=== PATIENT | female | born 1990 | race Caucasian/White ===

== ENCOUNTER 2017-08-30 06:55 | Emergency (ER) | payer BC ==
[2017-08-30 07:40] LABS: CHLORIDE,CL 104 mmol/L (98-107); SODIUM,NA 137 mmol/L (136-145)
--- NOTE | 2017-08-30 07:42 | EDM.PDOC ---
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 She had similar symptoms 3 weeks prior that resolved however yesterday she had a slip on the ice" with the pain this morning worsening with movement of her right arm better at rest No fever nausea vomiting chills sweats no actual chest pain shortness breath headache dizziness or palpitation no bowel or urine symptoms ] Review of systems: As per history of present illness and below otherwise all systems reviewed and negative. Past medical history: As per history of present illness and as reviewed below otherwise noncontributory. Surgical history: As per history of present illness and as reviewed below otherwise noncontributory. Social history: No reported history of drug or alcohol abuse. Family history: As per history of present illness and as reviewed below otherwise noncontributory. Physical exam: HEENT: Atraumatic, normocephalic, pupils reactive, negative for conjunctival pallor or scleral icterus, mucous membranes moist, throat clear, neck supple, nontender, trachea midline. Lungs: Clear to auscultation, breath sounds equal bilaterally, chest nontender. Heart: S1S2, regular, negative for clicks, rubs, or JVD. Abdomen: Soft, nondistended, nontender. Negative for masses or hepatosplenomegaly. Negative for costovertebral tenderness. Pelvis: Stable nontender. Genitourinary: Deferred. Rectal: Deferred. Extremities: Atraumatic, negative for cords or calf pain. Neurovascular unremarkable. Neuro: Awake, alert, oriented. Cranial nerves II through XII unremarkable. Cerebellum unremarkable. Motor and sensory unremarkable throughout. Exam nonfocal. Musculoskeletal as per history of present illness otherwise unremarkable Diagnostics: []CBC CMP troponin and d-dimer Chest 1 view EKG Therapeutics: [ rest ice ibuprofen Icy hot patches may benefit ] Impression: [ muscle spasm-right trapezius distribution right pectoralis major] Definitive disposition and diagnosis as appropriate pending reevaluation and review of above. R chest, R shoulder blade, R arm Pain Score (Numeric/FACES): 4 - Related Data Allergies Allergy/AdvReac Type Severity Reaction Status Date / Time No Known Allergies Allergy Verified 08/30/17 07:01 Home Meds: Home Meds . [No Known Home Meds] 08/30/17 [History] Past Medical History - Infectious Disease History Infectious Disease History: Reports: Chicken Pox - Past Surgical History HEENT Surgical History: Reports: Tonsillectomy Social & Family History - Family History Family Medical History: Noncontributory - Tobacco Use Smoking Status *Q: Former Smoker Years of Tobacco use: 3 Packs/Tins Daily: 1 Used Tobacco, but Quit: Yes Month/Year Tobacco Last Used: 6 months ago - Caffeine Use Caffeine Use: Reports: Coffee, Tea - Alcohol Use Days Per Week of Alcohol Use: 2 Number of Drinks Per Day: 5 Total Drinks Per Week: 10 - Recreational Drug Use Recreational Drug Use: No Course - Vital Signs Last Recorded V/S: Last Vital Signs Temp 98.4 F 08/30/17 07:42 Pulse 72 08/30/17 07:42 Resp 18 08/30/17 07:42 BP 117/67 08/30/17 07:42 Pulse Ox 97 08/30/17 07:42 - Orders/Labs/Meds Orders: Active Orders 24 hr Category Date Time Status EKG Documentation Completion [RC] STAT Care 08/30/17 07:04 Active Chest 1V Frontal [CR] Stat Exams 08/30/17 07:03 Taken Labs: Laboratory Tests 08/30/17 08/30/17 08/30/17 Range/Units 07:09 07:09 07:09 WBC 5.27 (4.0-11.0) K/uL RBC 4.91 (4.30-5.90) M/uL Hgb 14.3 (12.0-16.0) g/dL Hct 41.7 (36.0-46.0) % MCV 84.9 (80.0-98.0) fL MCH 29.1 (27.0-32.0) pg MCHC 34.3 (31.0-37.0) g/dL RDW Std Deviation 38.1 (28.0-62.0) fl RDW Coeff of Lorenzo 12 (11.0-15.0) % Plt Count 217 (150-400) K/uL MPV 9.50 (7.40-12.00) fL Neut % (Auto) 42.1 L (48.0-80.0) % Lymph % (Auto) 43.3 H (16.0-40.0) % [place] % (Auto) 12.3 (0.0-15.0) % Eos % (Auto) 1.7 (0.0-7.0) % Baso % (Auto) 0.6 (0.0-1.5) % Neut # (Auto) 2.2 (1.4-5.7) K/uL Lymph # (Auto) 2.3 (0.6-2.4) K/uL [place] # (Auto) 0.7 (0.0-0.8) K/uL Eos # (Auto) 0.1 (0.0-0.7) K/uL Baso # (Auto) 0.0 (0.0-0.1) K/uL Nucleated RBC % 0.0 /100WBC Nucleated RBCs # 0 K/uL D-Dimer, Quantitative < 0.19 (0.0-0.52) mg/LFEU Sodium 137 (136-145) mmol/L Potassium 3.8 (3.5-5.1) mmol/L Chloride 104 (98-107) mmol/L Carbon Dioxide 22.8 (21.0-32.0) mmol/L BUN 14 (7.0-18.0) mg/dL Creatinine 1.0 (0.6-1.0) mg/dL Est Cr Clr Drug Dosing 78.41 mL/min Estimated GFR (MDRD) > 60.0 ml/min Glucose 90 (74-106) mg/dL Calcium 9.0 (8.5-10.1) mg/dL Total Bilirubin 0.6 (0.2-1.0) mg/dL AST 19 (15-37) IU/L ALT 19 (14-63) IU/L Alkaline Phosphatase 45 L (46-116) U/L Troponin I < 0.050 (0.000-0.056) ng/mL Total Protein 6.8 (6.4-8.2) g/dL Albumin 3.8 (3.4-5.0) g/dL Globulin 3.0 (2.0-3.5) g/dL Albumin/Globulin Ratio 1.3 (1.3-2.8) Departure - Departure Time of Disposition: 08:02 Disposition: Home, Self-Care 01 Condition: Good Clinical Impression: Muscle spasm Referrals: PCP,None [Primary Care Provider] - Forms: ED Department Discharge Additional Instructions: Rest Ice 20 minute intervals 3 times daily as needed Icy hot patches may benefit Ibuprofen 400 mg 3 times daily 7-10 days Follow-up with primary care as needed [facility] [address] [place] [id number] The following information is given to patients seen in the emergency department who are being discharged to home. This information is to outline your options for follow-up care. We provide all patients seen in our emergency department with a follow-up referral. The need for follow-up, as well as the timing and circumstances, are variable depending upon the specifics of your emergency department visit. If you don't have a primary care physician on staff, we will provide you with a referral. We always advise you to contact your personal physician following an emergency department visit to inform them of the circumstance of the visit and for follow-up with them and/or the need for any referrals to a consulting specialist. The emergency department will also refer you to a specialist when appropriate. This referral assures that you have the opportunity for follow-up care with a specialist. All of these measure are taken in an effort to provide you with optimal care, which includes your follow-up. Under all circumstances we always encourage you to contact your private physician who remains a resource for coordinating your care. When calling for follow-up care, please make the office aware that this follow-up is from your recent emergency room visit. If for any reason you are refused follow-up, please contact the [facility] emergency department at and asked to speak to the emergency department charge nurse. <Bubba Scott - Last Filed: 08/30/17 08:14> ED ROS GENERAL - Review of Systems Review Of Systems: ROS reveals no pertinent complaints other than HPI. ED EXAM, GENERAL - Physical Exam Exam: See Below Departure - Departure Condition: Good
--- NOTE | 2017-09-01 11:04 | CR ---
EXAM DATE: 08/30/17 PATIENT'S AGE: 27 Patient: HERNANDO MORA Facility: [place], [place] Site . Site : 1990 Study: XRay Chest [id number]/31/2018 7:40:02 AM Ordering Physician: Doctor Fitzgerald Final Report: INDICATION: Right-sided chest pain TECHNIQUE: Single view chest. FINDINGS: The lungs are clear. The heart, mediastinum and pulmonary vessels are of normal size. There is no evidence of pleural disease. IMPRESSION: Negative chest. Dictated by Amrita Menchaca MD @ Aug 30 2017 7:55AM (Electronic Signature) Report Signed by Proxy. CORDELL
== END 2017-08-30 08:25 | disposition home or self-care (01) ==
LOC: MW.ED 06:55
DX: M62.838 Other muscle spasm (principal); Z87.891 Personal history of nicotine dependence
CPT/HCPCS: 36415; 71045; 71045-26; 80053; 84484; 85025; 85379; 93005; 99283; 99285-25

== ENCOUNTER 2018-09-07 13:15 | Emergency (ER) | payer BC ==
[2018-09-07] MEDS ORDERED: Sodium Chloride 0.9% 2.5 ML Syringe FLUSH PRN (13:25)
[2018-09-07] MEDS ORDERED: Sodium Chloride 0.9% 10 ML Syringe FLUSH PRN (13:25)
[2018-09-07] MEDS ORDERED: Sodium Chloride 0.9% 1,000 ML IV ONE ×3 (13:25→14:27)
[2018-09-07] MEDS ORDERED: Metoprolol Tartrate 25 MG Tab PO ONE (13:51)
[2018-09-07 14:04] LABS: CHLORIDE,CL 105 mmol/L (98-107); SODIUM,NA 141 mmol/L (136-145)
[2018-09-07] MEDS ORDERED: Metoprolol Tartrate 5 MG/5 ML SDV IVPUSH ONE (14:10)
--- NOTE | 2018-09-07 14:28 | EDM.PDOC ---
ED HPI GENERAL MEDICAL PROBLEM - General Chief Complaint: Cardiovascular Problem Stated Complaint: HIGH PULSE Time Seen by Provider: 09/07/18 13:18 Source of Information: Reports: Patient History Limitations: Reports: No Limitations - History of Present Illness INITIAL COMMENTS - FREE TEXT/NARRATIVE: History of present illness: []Patient has had a history of intermittent tachycardia and was worked up with a Holter monitor however it did not show any rhythm changes but she was also symptomatic while wearing it. Today she noticed her walk showing her heart rate was 206 while she was starting to feel sweaty, dizzy and lightheaded . Review of systems: As per history of present illness and below otherwise all systems reviewed and negative. Past medical history: As per history of present illness and as reviewed below otherwise noncontributory. Surgical history: As per history of present illness and as reviewed below otherwise noncontributory. Social history: No reported history of drug or alcohol abuse. Family history: As per history of present illness and as reviewed below otherwise noncontributory. Physical exam: General: Well developed, well nourished in NAD HEENT: Atraumatic, normocephalic, pupils reactive, negative for conjunctival pallor or scleral icterus, mucous membranes moist, throat clear, neck supple, nontender, trachea midline. Lungs: Clear to auscultation, breath sounds equal bilaterally, chest nontender. Heart: S1S2, regular, negative for clicks, rubs, or JVD. Abdomen: NABS, Soft, nondistended, nontender. Negative for masses or hepatosplenomegaly. Negative for costovertebral tenderness. Pelvis: Stable nontender. Genitourinary: Deferred. Rectal: Deferred. Extremities: Atraumatic, negative for cords or calf pain. Neurovascular unremarkable. Neuro: Awake, alert, oriented. Cranial nerves II through XII unremarkable. Cerebellum unremarkable. Motor and sensory unremarkable throughout. Exam nonfocal. Skin:warm and dry Diagnostics: EKG, pollen, CBC, Chemistry, UA, drug screen, TSH, CT chest for PE or masses Therapeutics: IV hydration with normal saline, potassium supplement, Lopressor IV 5 mg ED Course: patient had several episodes where her rate would normalize in the 70's and then shoot up to the 120's showing sinus tachycardia on the monitor. Consulted Dr. Benavidez recommended ruling her out for PE checking TSH She improved with Lopressor Impression: Intermittent sinus tachycardia Prescriptions: Metoprolol Plan: Follow-up with Dr. Benavidez and/or primary care Definitive disposition and diagnosis as appropriate pending reevaluation and review of above. - Related Data Allergies Allergy/AdvReac Type Severity Reaction Status Date / Time No Known Allergies Allergy Verified 09/07/18 13:23 Home Meds: Home Meds ClonazePAM [KlonoPIN] 0.5 mg PO DAILY PRN 09/07/18 [History] Metoprolol Succinate 25 mg PO DAILY #15 tab.er.24h 09/07/18 [Rx] Sertraline [Zoloft] 25 mg PO DAILY 09/07/18 [History] Past Medical History Psychiatric History: Reports: Anxiety, Depression - Infectious Disease History Infectious Disease History: Reports: Chicken Pox - Past Surgical History HEENT Surgical History: Reports: Myringotomy w Tube(s), Oral Surgery, Tonsillectomy Social & Family History - Family History Family Medical History: Noncontributory Cardiac: Reports: CAD, SD - Tobacco Use Smoking Status *Q: Current Every Day Smoker Years of Tobacco use: 4 Packs/Tins Daily: 0.2 - Caffeine Use Caffeine Use: Reports: Coffee - Recreational Drug Use Recreational Drug Use: No ED ROS GENERAL - Review of Systems Review Of Systems: ROS reveals no pertinent complaints other than HPI. ED EXAM, GENERAL - Physical Exam Exam: See Below (See history of present illness) Course - Vital Signs Last Recorded V/S: Last Vital Signs Temp 97.6 F 09/07/18 13:20 Pulse 68 09/07/18 15:48 Resp 20 09/07/18 15:48 BP 107/65 09/07/18 15:48 Pulse Ox 96 09/07/18 15:48 - Orders/Labs/Meds Orders: Active Orders 24 hr Category Date Time Status EKG 12 Lead [EKG Documentation Completion] [RC] STAT Care 09/07/18 13:20 Active EKG 12 Lead [EKG Documentation Completion] [RC] STAT Care 09/07/18 13:46 Active Sodium Chloride 0.9% [Saline Flush] Med 09/07/18 13:25 Active 10 ml FLUSH ASDIRECTED PRN Sodium Chloride 0.9% [Saline Flush] Med 09/07/18 13:25 Active 2.5 ml FLUSH ASDIRECTED PRN Saline Lock Insert [OM.PC] Stat Oth 09/07/18 13:24 Ordered Medication Orders Sodium Chloride (Saline Flush) 10 ml FLUSH ASDIRECTED PRN PRN Reason: Keep Vein Open Sodium Chloride (Saline Flush) 2.5 ml FLUSH ASDIRECTED PRN PRN Reason: Keep Vein Open Labs: Laboratory Tests 09/07/18 09/07/18 09/07/18 Range/Units 13:30 13:30 13:44 WBC 7.01 (4.0-11.0) K/uL RBC 5.09 (4.30-5.90) M/uL Hgb 15.1 (12.0-16.0) g/dL Hct 44.2 (36.0-46.0) % MCV 86.8 (80.0-98.0) fL MCH 29.7 (27.0-32.0) pg MCHC 34.2 (31.0-37.0) g/dL RDW Std Deviation 37.9 (28.0-62.0) fl RDW Coeff of Lorenzo 12 (11.0-15.0) % Plt Count 228 (150-400) K/uL MPV 9.80 (7.40-12.00) fL Neut % (Auto) 69.1 (48.0-80.0) % Lymph % (Auto) 25.1 (16.0-40.0) % [place] % (Auto) 5.1 (0.0-15.0) % Eos % (Auto) 0.6 (0.0-7.0) % Baso % (Auto) 0.1 (0.0-1.5) % Neut # (Auto) 4.8 (1.4-5.7) K/uL Lymph # (Auto) 1.8 (0.6-2.4) K/uL [place] # (Auto) 0.4 (0.0-0.8) K/uL Eos # (Auto) 0.0 (0.0-0.7) K/uL Baso # (Auto) 0.0 (0.0-0.1) K/uL Nucleated RBC % 0.0 /100WBC Nucleated RBCs # 0 K/uL Sodium 141 (136-145) mmol/L Potassium 3.2 L (3.5-5.1) mmol/L Chloride 105 (98-107) mmol/L Carbon Dioxide 25.0 (21.0-32.0) mmol/L BUN 16 (7.0-18.0) mg/dL Creatinine 0.8 (0.6-1.0) mg/dL Est Cr Clr Drug Dosing 97.13 mL/min Estimated GFR (MDRD) > 60.0 ml/min Glucose 118 H (74-106) mg/dL Calcium 9.2 (8.5-10.1) mg/dL Total Bilirubin 0.7 (0.2-1.0) mg/dL AST 13 L (15-37) IU/L ALT 20 (14-63) IU/L Alkaline Phosphatase 50 (46-116) U/L Troponin I < 0.050 (0.000-0.056) ng/mL Total Protein 7.8 (6.4-8.2) g/dL Albumin 4.3 (3.4-5.0) g/dL Globulin 3.5 (2.6-4.0) g/dL Albumin/Globulin Ratio 1.2 (0.9-1.6) TSH 3rd Generation (0.36-3.74) uIU/mL Urine HCG, Qual NEGATIVE (NEGATIVE) Urine Opiates Screen (NEGATIVE) Ur Oxycodone Screen (NEGATIVE) Urine Methadone Screen (NEGATIVE) Ur Barbiturates Screen (NEGATIVE) Ur Phencyclidine Scrn (NEGATIVE) Ur Amphetamine Screen (NEGATIVE) U Methamphetamines Scrn (NEGATIVE) U Benzodiazepines Scrn (NEGATIVE) U Cocaine Metab Screen (NEGATIVE) U Marijuana (THC) Screen (NEGATIVE) 09/07/18 09/07/18 Range/Units 13:44 14:41 WBC (4.0-11.0) K/uL RBC (4.30-5.90) M/uL Hgb (12.0-16.0) g/dL Hct (36.0-46.0) % MCV (80.0-98.0) fL MCH (27.0-32.0) pg MCHC (31.0-37.0) g/dL RDW Std Deviation (28.0-62.0) fl RDW Coeff of Lorenzo (11.0-15.0) % Plt Count (150-400) K/uL MPV (7.40-12.00) fL Neut % (Auto) (48.0-80.0) % Lymph % (Auto) (16.0-40.0) % [place] % (Auto) (0.0-15.0) % Eos % (Auto) (0.0-7.0) % Baso % (Auto) (0.0-1.5) % Neut # (Auto) (1.4-5.7) K/uL Lymph # (Auto) (0.6-2.4) K/uL [place] # (Auto) (0.0-0.8) K/uL Eos # (Auto) (0.0-0.7) K/uL Baso # (Auto) (0.0-0.1) K/uL Nucleated RBC % /100WBC Nucleated RBCs # K/uL Sodium (136-145) mmol/L Potassium (3.5-5.1) mmol/L Chloride (98-107) mmol/L Carbon Dioxide (21.0-32.0) mmol/L BUN (7.0-18.0) mg/dL Creatinine (0.6-1.0) mg/dL Est Cr Clr Drug Dosing mL/min Estimated GFR (MDRD) ml/min Glucose (74-106) mg/dL Calcium (8.5-10.1) mg/dL Total Bilirubin (0.2-1.0) mg/dL AST (15-37) IU/L ALT (14-63) IU/L Alkaline Phosphatase (46-116) U/L Troponin I (0.000-0.056) ng/mL Total Protein (6.4-8.2) g/dL Albumin (3.4-5.0) g/dL Globulin (2.6-4.0) g/dL Albumin/Globulin Ratio (0.9-1.6) TSH 3rd Generation 1.93 (0.36-3.74) uIU/mL Urine HCG, Qual (NEGATIVE) Urine Opiates Screen NEGATIVE (NEGATIVE) Ur Oxycodone Screen NEGATIVE (NEGATIVE) Urine Methadone Screen NEGATIVE (NEGATIVE) Ur Barbiturates Screen NEGATIVE (NEGATIVE) Ur Phencyclidine Scrn NEGATIVE (NEGATIVE) Ur Amphetamine Screen NEGATIVE (NEGATIVE) U Methamphetamines Scrn NEGATIVE (NEGATIVE) U Benzodiazepines Scrn NEGATIVE (NEGATIVE) U Cocaine Metab Screen NEGATIVE (NEGATIVE) U Marijuana (THC) Screen NEGATIVE (NEGATIVE) Meds: Medications Generic Name Dose Route Start Last Admin Trade Name Freq PRN Reason Stop Dose Admin Sodium Chloride 10 ml 09/07/18 13:25 Saline Flush FLUSH ASDIRECTED PRN Keep Vein Open Sodium Chloride 2.5 ml 09/07/18 13:25 Saline Flush FLUSH ASDIRECTED PRN Keep Vein Open Discontinued Medications Generic Name Dose Route Start Last Admin Trade Name Freq PRN Reason Stop Dose Admin Sodium Chloride 1,000 mls @ 999 mls/hr 09/07/18 13:25 09/07/18 13:38 Normal Saline IV 09/07/18 14:25 999 mls/hr .Bolus ONE Administration Sodium Chloride 1,000 mls @ 999 mls/hr 09/07/18 14:27 09/07/18 14:31 Normal Saline IV 09/07/18 15:27 999 mls/hr .Bolus ONE Administration Sodium Chloride 1,000 mls @ 999 mls/hr 09/07/18 14:27 09/07/18 14:28 Normal Saline IV 09/07/18 15:27 Not Given .Bolus ONE Iopamidol 50 ml 09/07/18 15:05 09/07/18 15:06 Isovue Multipack-370 (76%) IVPUSH 09/07/18 15:06 50 ml ONETIME ONE Administration Metoprolol Tartrate 25 mg 09/07/18 13:51 09/07/18 14:29 Lopressor PO 09/07/18 13:52 25 mg ONETIME ONE Administration Metoprolol Tartrate 5 mg 09/07/18 14:10 09/07/18 14:24 Lopressor IVPUSH 09/07/18 14:11 Not Given Q5M ONE Ondansetron HCl 4 mg 09/07/18 14:42 09/07/18 14:48 Zofran IVPUSH 09/07/18 14:43 4 mg ONETIME ONE Administration Potassium Chloride 40 meq 09/07/18 14:42 09/07/18 15:13 Klor-Con M20 PO 09/07/18 14:43 40 meq ONETIME ONE Administration Departure - Departure Time of Disposition: 16:00 Disposition: Home, Self-Care 01 Condition: Good Clinical Impression: Paroxysmal sinus tachycardia Prescriptions: Metoprolol Succinate 25 mg PO DAILY #15 tab.er.24h Referrals: PCP,None [Primary Care Provider] - Jessie Cevallos MD [Physician] - (Call for next available appointment) Forms: ED Department Discharge Additional Instructions: The following information is given to patients seen in the emergency department who are being discharged to home. This information is to outline your options for follow-up care. We provide all patients seen in our emergency department with a follow-up referral. The need for follow-up, as well as the timing and circumstances, are variable depending upon the specifics of your emergency department visit. If you don't have a primary care physician on staff, we will provide you with a referral. We always advise you to contact your personal physician following an emergency department visit to inform them of the circumstance of the visit and for follow-up with them and/or the need for any referrals to a consulting specialist. The emergency department will also refer you to a specialist when appropriate. This referral assures that you have the opportunity for follow-up care with a specialist. All of these measure are taken in an effort to provide you with optimal care, which includes your follow-up. Under all circumstances we always encourage you to contact your private physician who remains a resource for coordinating your care. When calling for follow-up care, please make the office aware that this follow-up is from your recent emergency room visit. If for any reason you are refused follow-up, please contact the [facility] Emergency Department at and asked to speak to the emergency department charge nurse. Take meds as directed, follow up with your primary care physician, return to ER if symptoms worsen or change. [facility] [address] [place] [id number] - My Orders Last 24 Hours: My Active Orders 09/07/18 13:20 EKG 12 Lead [EKG Documentation Completion] [RC] STAT 09/07/18 13:24 Saline Lock Insert [OM.PC] Stat 09/07/18 13:25 Sodium Chloride 0.9% [Saline Flush] 10 ml FLUSH ASDIRECTED PRN Sodium Chloride 0.9% [Saline Flush] 2.5 ml FLUSH ASDIRECTED PRN 09/07/18 13:46 EKG 12 Lead [EKG Documentation Completion] [RC] STAT - Assessment/Plan Last 24 Hours: My Active Orders 09/07/18 13:20 EKG 12 Lead [EKG Documentation Completion] [RC] STAT 09/07/18 13:24 Saline Lock Insert [OM.PC] Stat 09/07/18 13:25 Sodium Chloride 0.9% [Saline Flush] 10 ml FLUSH ASDIRECTED PRN Sodium Chloride 0.9% [Saline Flush] 2.5 ml FLUSH ASDIRECTED PRN 09/07/18 13:46 EKG 12 Lead [EKG Documentation Completion] [RC] STAT
[2018-09-07] MEDS ORDERED: Ondansetron 4 MG/2 ML SDV IVPUSH ONE (14:42)
[2018-09-07] MEDS ORDERED: Potassium Chloride 20 MEQ Tab.ER PO ONE (14:42)
--- NOTE | 2018-09-07 14:52 | CR ---
EXAMINATION: Portable chest radiograph. HISTORY: Shortness of breath. FINDINGS: The trachea is midline. The cardiomediastinal silhouette is within normal limits. No pulmonary infiltrates, effusions or pneumothorax. Osseous structures appear unremarkable. IMPRESSION: No acute cardiopulmonary process.
[2018-09-07] MEDS ORDERED: Iopamidol 755 MG/ML 200 ML Multipack Bottle IVPUSH ONE (15:05)
--- NOTE | 2018-09-07 15:48 | CT ---
EXAMINATION: CTA chest HISTORY: Pain COMPARISON: Radiograph from the same day TECHNIQUE: Axial CT imaging obtained through the chest following the administration of 50 mL of Isovue-370 in the right antecubital fossa. Coronal and sagittal reconstructions obtained. FINDINGS: The lungs are clear without focal consolidation. No pleural effusion or pneumothorax. The heart is normal in size without a pericardial effusion. The thoracic aorta is normal in caliber without evidence of obstruction. No focal pericolonic inflammation or stranding. The main and central pulmonary arteries are patent without evidence of a pulmonary embolism. Central airways are clear. No axillary, mediastinal, or hilar lymphadenopathy. No suspicious osseous abnormalities identified. IMPRESSION: No acute cardiopulmonary findings or pulmonary embolism noted.
== END 2018-09-07 16:30 | disposition home or self-care (01) ==
LOC: MW.ED 13:15
DX: I47.1 Supraventricular tachycardia (principal); F17.210 Nicotine dependence, cigarettes, uncomplicated; F41.9 Anxiety disorder, unspecified; F32.9 Major depressive disorder, single episode, unspecified; Z79.899 Other long term (current) drug therapy
CPT/HCPCS: 36415; 71045; 71275; 80053; 80305; 81025; 84443; 84484; 85025; 93005; 96361; 96374; 99285; A9270; J2405; J7040; Q9967

== ENCOUNTER 2018-10-01 14:31 | Emergency (ER) | payer BC ==
[2018-10-01] MEDS ORDERED: Sodium Chloride 0.9% 2.5 ML Syringe FLUSH PRN (14:50)
[2018-10-01] MEDS ORDERED: LORazepam 2 MG/ML SDV IVPUSH ONE (14:50)
[2018-10-01] MEDS ORDERED: Aspirin 81 MG Tab.Chew PO ONE (14:50)
[2018-10-01] MEDS ORDERED: Sodium Chloride 0.9% 10 ML Syringe FLUSH PRN (14:50)
--- NOTE | 2018-10-01 14:55 | EDM.PDOC ---
ED HPI GENERAL MEDICAL PROBLEM - General Chief Complaint: Chest Pain Stated Complaint: CHEST PAIN Time Seen by Provider: 10/01/18 14:35 - History of Present Illness INITIAL COMMENTS - FREE TEXT/NARRATIVE: HISTORY AND PHYSICAL: History of present illness: The patient is a 28-year-old female was been working with our environmental monitoring specialist for tachycardia, which she was seen in our emergency department on September 07 and has since followed up and presents with complaints of squeezing like pain near her Zio patch monitor that she had placed a week ago. The patient underwent a stress test here on September 24 which I have reviewed and was within normal limits for ischemia but she did exceed the goal range for high heart rate and a heart monitor was ordered which she is currently participating in. The patient has followed up with her environmental monitoring specialist as an outpatient and has reduced her caffeine intake and is currently on propranolol area the patient says she has had no systemic complaints such as respiratory infection cough chest pain shortness of breath abdominal pain nausea or vomiting and has been eating and drinking normally. Today while she was at work she started feeling this squeezing-like discomfort which was near the heart monitor and did not radiate and then she started feeling anxious like her heart was racing. On arrival here, partly 2 hours from the onset of symptoms, she is saying that she feels like her heart is racing inside of her even though her heart rate is in the 60s and she's feeling tingling to her face and neck. She says she feels like this is anxiety driven but she is not sure and she is worried. She says that the chest pain has significantly improved and is almost gone at this point and she is more concerned about the tingling and is becoming very tearful on my evaluation. She says she feels very confused and is not sure what is going on with her and wants answers. She currently is not nauseated and has no abdominal pain. She has no leg pain or swelling. The patient does smoke some cigarettes but does not use drugs and says she has reduced her caffeine intake by about half. She does have a significant family history of a father who had a heart attack in his 40s. Review of systems: As per history of present illness and below otherwise all systems reviewed and negative. Past medical history: As per history of present illness and as reviewed below otherwise noncontributory. Surgical history: As per history of present illness and as reviewed below otherwise noncontributory. Social history: No reported history of drug or alcohol abuse. Family history: As per history of present illness and as reviewed below otherwise noncontributory. Physical exam: General: Well-developed well-nourished thin female who is nontoxic and tearful on my evaluation but is speaking clearly and easily. Vital signs are noted by me HEENT: Atraumatic, normocephalic, pupils reactive, negative for conjunctival pallor or scleral icterus, mucous membranes moist, throat clear, neck supple, nontender, trachea midline. Lungs: Clear to auscultation, breath sounds equal bilaterally, chest nontender. ZIO monitor is seen at the left upper chest wall and there is no surrounding erythema soft tissue swelling or tenderness on palpation Heart: S1S2, regular, negative for clicks, rubs, or JVD. Abdomen: Soft, nondistended, nontender. Negative for masses or hepatosplenomegaly. NABS Pelvis: Stable nontender. Genitourinary: Deferred. Rectal: Deferred. Extremities: Atraumatic, negative for cords or calf pain. Neurovascular unremarkable. No pedal edema Neuro: Awake, alert, oriented. Cranial nerves II through XII unremarkable. Cerebellum unremarkable. Motor and sensory unremarkable throughout. Exam nonfocal. Diagnostics: CBC CMP troponin chest x-ray Therapeutics: IV O2 monitor aspirin Ativan The patient says that she feels completely improved after the Ativan and I will discuss with her all testing results. I will also discuss this case with the environmental monitoring specialist Dr. Pramod banerjee from him of today's events. Impression: Atypical chest pain with history of heart monitor and sinus tachycardia stable, anxiety reaction Definitive disposition and diagnosis as appropriate pending reevaluation and review of above. - Related Data Allergies Allergy/AdvReac Type Severity Reaction Status Date / Time No Known Allergies Allergy Verified 10/01/18 14:35 Home Meds: Home Meds ClonazePAM [KlonoPIN] 0.5 mg PO DAILY PRN 09/07/18 [History] Sertraline [Zoloft] 25 mg PO DAILY 09/07/18 [History] Propranolol [Inderal] 25 mg PO DAILY 10/01/18 [History] Past Medical History HEENT History: Reports: None Cardiovascular History: Reports: Other (See Below) Other Cardiovascular History: Zio Patch minotr for Sinus Tachycardia Psychiatric History: Reports: Anxiety, Depression - Infectious Disease History Infectious Disease History: Reports: Chicken Pox - Past Surgical History HEENT Surgical History: Reports: Myringotomy w Tube(s), Oral Surgery, Tonsillectomy Cardiovascular Surgical History: Reports: None Social & Family History - Family History Family Medical History: Noncontributory Cardiac: Reports: CAD, [place] - Tobacco Use Smoking Status *Q: Current Every Day Smoker Years of Tobacco use: 4 Packs/Tins Daily: 1 - Caffeine Use Caffeine Use: Reports: Coffee - Recreational Drug Use Recreational Drug Use: No ED ROS GENERAL - Review of Systems Review Of Systems: ROS reveals no pertinent complaints other than HPI. ED EXAM, GENERAL - Physical Exam Exam: See Below (see Dictation) Course - Vital Signs Last Recorded V/S: Last Vital Signs Temp 35.7 C 10/01/18 14:37 Pulse 66 10/01/18 14:37 Resp 22 H 10/01/18 14:37 BP 143/97 H 10/01/18 14:37 Pulse Ox 98 10/01/18 14:37 - Orders/Labs/Meds Orders: Active Orders 24 hr Category Date Time Status Cardiac Monitoring [RC] . DIRECTED Care 10/01/18 14:49 Active EKG Documentation Completion [RC] STAT Care 10/01/18 14:49 Active Oxygen Therapy, ED [RC] ASDIRECTED Care 10/01/18 14:49 Active Pulse Oximetry [RC] ASDIRECTED Care 10/01/18 14:49 Active Sodium Chloride 0.9% [Saline Flush] Med 10/01/18 14:50 Active 10 ml FLUSH ASDIRECTED PRN Sodium Chloride 0.9% [Saline Flush] Med 10/01/18 14:50 Active 2.5 ml FLUSH ASDIRECTED PRN Saline Lock Insert [OM.PC] Stat Oth 10/01/18 14:49 Ordered Medication Orders Sodium Chloride (Saline Flush) 10 ml FLUSH ASDIRECTED PRN PRN Reason: Keep Vein Open Last Admin: 10/01/18 14:58 Dose: 10 ml Sodium Chloride (Saline Flush) 2.5 ml FLUSH ASDIRECTED PRN PRN Reason: Keep Vein Open Last Admin: 10/01/18 14:58 Dose: 2.5 ml Labs: Laboratory Tests 10/01/18 10/01/18 Range/Units 14:43 14:43 WBC 9.02 (4.0-11.0) K/uL RBC 5.21 (4.30-5.90) M/uL Hgb 15.3 (12.0-16.0) g/dL Hct 45.6 (36.0-46.0) % MCV 87.5 (80.0-98.0) fL MCH 29.4 (27.0-32.0) pg MCHC 33.6 (31.0-37.0) g/dL RDW Std Deviation 39.2 (28.0-62.0) fl RDW Coeff of Lorenzo 12 (11.0-15.0) % Plt Count 349 (150-400) K/uL MPV 10.00 (7.40-12.00) fL Neut % (Auto) 57.4 (48.0-80.0) % Lymph % (Auto) 33.8 (16.0-40.0) % Bell % (Auto) 7.5 (0.0-15.0) % Eos % (Auto) 1.1 (0.0-7.0) % Baso % (Auto) 0.2 (0.0-1.5) % Neut # (Auto) 5.2 (1.4-5.7) K/uL Lymph # (Auto) 3.1 H (0.6-2.4) K/uL Bell # (Auto) 0.7 (0.0-0.8) K/uL Eos # (Auto) 0.1 (0.0-0.7) K/uL Baso # (Auto) 0.0 (0.0-0.1) K/uL Nucleated RBC % 0.0 /100WBC Nucleated RBCs # 0 K/uL Sodium 139 (136-145) mmol/L Potassium 4.2 (3.5-5.1) mmol/L Chloride 102 (98-107) mmol/L Carbon Dioxide 25.5 (21.0-32.0) mmol/L BUN 15 (7.0-18.0) mg/dL Creatinine 0.9 (0.6-1.0) mg/dL Est Cr Clr Drug Dosing 86.34 mL/min Estimated GFR (MDRD) > 60.0 ml/min Glucose 98 (74-106) mg/dL Calcium 9.6 (8.5-10.1) mg/dL Total Bilirubin 0.5 (0.2-1.0) mg/dL AST 16 (15-37) IU/L ALT 17 (14-63) IU/L Alkaline Phosphatase 63 (46-116) U/L Troponin I < 0.050 (0.000-0.056) ng/mL Total Protein 8.2 (6.4-8.2) g/dL Albumin 4.5 (3.4-5.0) g/dL Globulin 3.7 (2.6-4.0) g/dL Albumin/Globulin Ratio 1.2 (0.9-1.6) Meds: Medications Generic Name Dose Route Start Last Admin Trade Name Freq PRN Reason Stop Dose Admin Sodium Chloride 10 ml 10/01/18 14:50 10/01/18 14:58 Saline Flush FLUSH 10 ml ASDIRECTED PRN Administration Keep Vein Open Sodium Chloride 2.5 ml 10/01/18 14:50 10/01/18 14:58 Saline Flush FLUSH 2.5 ml ASDIRECTED PRN Administration Keep Vein Open Discontinued Medications Generic Name Dose Route Start Last Admin Trade Name Freq PRN Reason Stop Dose Admin Aspirin 324 mg 10/01/18 14:50 10/01/18 14:57 Aspirin PO 10/01/18 14:51 324 mg ONETIME ONE Administration Lorazepam 0.5 mg 10/01/18 14:50 10/01/18 14:57 Ativan IVPUSH 10/01/18 14:51 0.5 mg ONETIME ONE Administration Departure - Departure Time of Disposition: 15:45 Disposition: Home, Self-Care 01 Condition: Good Clinical Impression: Anxiety reaction, Atypical chest pain - Discharge Information Referrals: PCP,None [Primary Care Provider] - Forms: ED Department Discharge Additional Instructions: The following information is given to patients seen in the emergency department who are being discharged to home. This information is to outline your options for follow-up care. We provide all patients seen in our emergency department with a follow-up referral. The need for follow-up, as well as the timing and circumstances, are variable depending upon the specifics of your emergency department visit. If you don't have a primary care physician on staff, we will provide you with a referral. We always advise you to contact your personal physician following an emergency department visit to inform them of the circumstance of the visit and for follow-up with them and/or the need for any referrals to a consulting specialist. The emergency department will also refer you to a specialist when appropriate. This referral assures that you have the opportunity for followup care with a specialist. All of these measure are taken in an effort to provide you with optimal care, which includes your followup. Under all circumstances we always encourage you to contact your private physician who remains a resource for coordinating your care. When calling for followup care, please make the office aware that this follow-up is from your recent emergency room visit. If for any reason you are refused follow-up, please contact the [facility] emergency department at and ask to speak to the emergency department charge nurse. [facility] Primary care- Internal Medicine and Family [address] [address] Please continue with your outpatient care plan with her environmental monitoring specialist Dr. Benavidez. Please continue to reduce smoking and caffeine use, push hydration and try to reduce stressors. Return to ER as needed and as discussed - My Orders Last 24 Hours: My Active Orders 10/01/18 14:49 Cardiac Monitoring [RC] . DIRECTED EKG Documentation Completion [RC] STAT Oxygen Therapy, ED [RC] ASDIRECTED Pulse Oximetry [RC] ASDIRECTED Saline Lock Insert [OM.PC] Stat 10/01/18 14:50 Sodium Chloride 0.9% [Saline Flush] 10 ml FLUSH ASDIRECTED PRN Sodium Chloride 0.9% [Saline Flush] 2.5 ml FLUSH ASDIRECTED PRN - Assessment/Plan Last 24 Hours: My Active Orders 10/01/18 14:49 Cardiac Monitoring [RC] . DIRECTED EKG Documentation Completion [RC] STAT Oxygen Therapy, ED [RC] ASDIRECTED Pulse Oximetry [RC] ASDIRECTED Saline Lock Insert [OM.PC] Stat 10/01/18 14:50 Sodium Chloride 0.9% [Saline Flush] 10 ml FLUSH ASDIRECTED PRN Sodium Chloride 0.9% [Saline Flush] 2.5 ml FLUSH ASDIRECTED PRN
--- NOTE | 2018-10-01 15:28 | CR ---
EXAMINATION: AP chest radiograph. HISTORY: Shortness of breath. FINDINGS: The trachea is midline. The cardiomediastinal silhouette is within normal limits. No pulmonary infiltrates, effusions or pneumothorax. Left sided gambling monitor noted. Osseous structures appear unremarkable. IMPRESSION: No acute cardiopulmonary process.
[2018-10-01 15:33] LABS: CHLORIDE,CL 102 mmol/L (98-107); SODIUM,NA 139 mmol/L (136-145)
== END 2018-10-01 16:02 | disposition home or self-care (01) ==
LOC: MW.ED 14:31
DX: F41.1 Generalized anxiety disorder (principal); F17.210 Nicotine dependence, cigarettes, uncomplicated; Z79.899 Other long term (current) drug therapy
CPT/HCPCS: 36415; 71045; 80053; 84484; 85025; 93005; 96374; 99285; A9270; J2060; 99283

== ENCOUNTER 2021-10-14 06:36 | Emergency (ER) | payer BC ==
[2021-10-14] MEDS ORDERED: Ondansetron 4 MG/2 ML SDV IVPUSH ONE (07:54)
[2021-10-14] MEDS ORDERED: Sodium Chloride 0.9% 1,000 ML IV ONE (07:54)
[2021-10-14] MEDS ORDERED: Sodium Chloride 0.9% 2.5 ML Syringe FLUSH PRN (07:54)
[2021-10-14] MEDS ORDERED: Sodium Chloride 0.9% 10 ML Syringe FLUSH PRN (07:54)
[2021-10-14 09:11] LABS: BLOOD UREA NITROGEN,BUN 13 mg/dL (7.0-18.0); CARBON DIOXIDE,CO2 24.8 mmol/L (21.0-32.0); CHLORIDE,CL 102 mmol/L (98-107); GLUCOSE RANDOM 92 mg/dL (74-106); POTASSIUM,K 3.2 mmol/L (3.5-5.1); SODIUM,NA 138 mmol/L (136-145)
[2021-10-14] MEDS ORDERED: metroNIDAZOLE 250 MG Tab PO ONE (09:24)
== END 2021-10-14 10:42 | disposition home or self-care (01) ==
LOC: MW.ED 06:36
DX: R19.7 Diarrhea, unspecified (principal); R10.30 Lower abdominal pain, unspecified; Z79.899 Other long term (current) drug therapy
CPT/HCPCS: 36415; 74176; 80053; 81003; 81025; 83630; 84703; 85025; 87045; 87046; 87324; 87449; 87899; 96361; 96374; 99284; A9270; J2405; J3490; J7030